=== PATIENT | female | born 1970 | race Caucasian/White ===

== ENCOUNTER 2018-03-23 22:26 | Emergency (ER) | payer OTHER ==
[~2018-03-23] VITALS: Ht 152.4 cm; Wt 50.1 kg
[~2018-03-23 22:26] MED LIST: DULOXETINE HCL60 MG PO; IMITREX25 MG PO; NORCO 5/3251 TABLET PO; PEN-VEE K,VEET500 MG PO; REGLAN10 MG PO
[2018-03-23] MEDS ORDERED: CLEOCIN150 MG PO (23:34)
[2018-03-23] MEDS ORDERED: PERIDEX473 ML MM (23:34)
[2018-03-24] MEDS ORDERED: ULTRAM50 MG PO (00:01)
[2018-03-24 00:11] VITALS: BP 126/75
== END 2018-03-24 00:12 | disposition home or self-care (01) ==
LOC: EME 22:26
DX: K04.7 Periapical abscess without sinus (principal); K02.9 Dental caries, unspecified; F17.200 Nicotine dependence, unspecified, uncomplicated; Z88.8 Allergy status to other drugs, medicaments and biological substances
CPT/HCPCS: 99281; 99283

== ENCOUNTER 2018-06-05 02:51 | Emergency (ER) | payer OTHER ==
[~2018-06-05] VITALS: Ht 152.4 cm; Wt 50.0 kg
[~2018-06-05 02:51] MED LIST changes: +CLEOCIN150 MG PO; +PERIDEX473 ML MM; +ULTRAM50 MG PO
[2018-06-05 03:23] LABS: HEMATOCRIT 36.4 % (36.0-46.0); HEMOGLOBIN 13.1 G/DL (11.9-15.5); MCH 35.7 PG (29.0-34.0); MCV 99.2 FL (83-99); PLATELET COUNT 337 K/uL (156-360); RBC DIS.WIDTH-CV 12.6 % (11.8-14.6); RBC DIS.WIDTH-SD 45.8 % (39-53); RED BLOOD COUNT 3.67 M/uL (3.80-5.20); WHITE BLOOD COUNT 10.2 K/uL (4.1-10.2)
[2018-06-05 03:33] LABS: CHLORIDE 114 mEq/L (99-109); POTASSIUM 3.1 mEq/L (3.7-5.4); SODIUM 143 mEq/L (136-147)
[2018-06-05 03:34] LABS: GLUCOSE 115 mg/dL (70-99)
[2018-06-05 03:38] LABS: CREATININE 0.8 mg/dL (0.6-1.3); GFR ESTIMATE (CALCULATED) > 59 mL/min/
[2018-06-05 03:39] LABS: UREA NITROGEN (BUN) 12 mg/dL (9-23)
[2018-06-05 04:43] LABS: APPEARANCE CLOUDY ((CLEAR)); BILIRUBIN NEGATIVE; BLOOD LARGE; COLOR AMBER ((YELLOW)); GLUCOSE (STRIP) NEGATIVE; KETONES NEGATIVE; LEUKOCYTES NEGATIVE; NITRITE NEGATIVE; PROTEIN (STRIP) 100; SPECIFIC GRAVITY 1.023 (1.000-1.030); UROBILINOGEN 0.2 MG/DL (0.2-1.0)
[2018-06-05 04:58] LABS: RED BLOOD CELLS TNTC /HPF (0-5); UCUL ADDED? YES
[2018-06-05 05:00] LABS: URINE COMMENT FIELD OBSCURED BY
[2018-06-05 05:45] VITALS: BP 124/78
== END 2018-06-05 06:11 | disposition home or self-care (01) ==
LOC: EME 02:51
DX: G40.409 Other generalized epilepsy and epileptic syndromes, not intractable, without status epilepticus (principal); F41.9 Anxiety disorder, unspecified; F43.9 Reaction to severe stress, unspecified; M79.7 Fibromyalgia; F17.200 Nicotine dependence, unspecified, uncomplicated; Z88.8 Allergy status to other drugs, medicaments and biological substances
CPT/HCPCS: 80048; 81003; 85027; 87086; 99281; 99284